=== PATIENT | male | born 1940 | race Caucasian/White ===

== ENCOUNTER 2021-09-06 20:35 | Inpatient (IN) | payer MEDICARE, OTHER ==
[~2021-09-06] VITALS: Ht 153.7 cm; Wt 79.4 kg
[2021-09-06] MEDS ORDERED: REMEDY ESSENTIAL ZINC PASTE 113 GM TOP PRN (21:15)
[2021-09-06 21:48] VITALS: BP 103/48
[2021-09-06] MEDS ORDERED: ASPI-612 PO (21:56)
[2021-09-06] MEDS ORDERED: AMLO10TA59 PO (21:56)
[2021-09-06] MEDS ORDERED: TELM80TA2 PO (21:56)
[2021-09-06] MEDS ORDERED: POTA10CA43 PO (21:56)
[2021-09-06] MEDS ORDERED: METO-358 PO (21:56)
[2021-09-06] MEDS ORDERED: RIVA10TA PO (21:56)
[2021-09-06] MEDS ORDERED: HYDR-4077 PO (21:56)
[2021-09-06] MEDS ORDERED: TRAZ-182 PO (21:56)
[2021-09-06] MEDS ORDERED: FURO20TA4 PO (21:56)
[2021-09-06] MEDS ORDERED: OXYC-133 PO (21:56)
[2021-09-06] MEDS ORDERED: hydrALAZINE HCL 25 MG TABLET PO PRN (23:15)
[2021-09-07] MEDS: TRAZODONE 50 MG TABLET PO SCH ×2 (00:02→20:17)
[2021-09-07 04:19] VITALS: BP 108/52
[2021-09-07] MEDS ORDERED: REMEDY ESSENTIAL ZINC PASTE 113 GM TOP PRN (05:29)
[2021-09-07] MEDS: POTASSIUM CHLORIDE 10 MEQ TAB.PRT.SR PO SCH (08:06)
[2021-09-07] MEDS: FUROSEMIDE 20 MG TABLET PO SCH (08:08)
[2021-09-07] MEDS: AMLODIPINE 10 MG TABLET PO SCH (08:09)
[2021-09-07] MEDS: OXYCODONE/APAP 5-325 MG TABLET PO PRN ×2 (08:09→14:49)
[2021-09-07 08:47] VITALS: BP 135/49
[2021-09-07] MEDS ORDERED: RIVAROXABAN 10 MG TABLET PO SCH (09:00)
[2021-09-07] MEDS ORDERED: ASPIRIN EC 325 MG TABLET.DR PO SCH (09:00)
[2021-09-07] MEDS ORDERED: ICOS1CAP PO (12:38)
[2021-09-07] MEDS ORDERED: ATOR20TA PO (12:39)
[2021-09-07 15:52] VITALS: BP 125/65
[2021-09-07 15:52] LABS: *BILIRUBIN,URIN NEGATIVE (NEGATIVE); *BLOOD, URINE NEGATIVE (NEGATIVE); *CLARITY,URINE CLEAR (CLEAR); *COLOR,URINE YELLOW (YELLOW); *KETONES,URINE TRACE (NEGATIVE); *UROBILINOGEN,URINE 0.2 E.U./dl (NORMAL); LEUKOCYTE ESTERASE ,URINE NEGATIVE (NEGATIVE); NITRITE, URINE NEGATIVE (NEGATIVE); UGLUCOSE NEGATIVE (NEGATIVE)
[2021-09-07 15:55] LABS: *CREATININE,URINE 121.5 mg/dL (30-125); *URINE TOTAL PROTEIN RANDOM 67.9 mg/dL (<150/24HR)
[2021-09-07] MEDS: RIVAROXABAN 10 MG TABLET PO SCH (16:29)
[2021-09-07] MEDS ORDERED: Icosapent Ethyl (Vascepa) 2 GM) PO SCH (17:00)
[2021-09-07 20:01] VITALS: BP 131/35
[2021-09-07] MEDS: ATORVASTATIN 20 MG TABLET PO SCH (20:17)
[2021-09-08] MEDS: OXYCODONE/APAP 5-325 MG TABLET PO PRN ×2 (04:05→10:10)
[2021-09-08 04:33] VITALS: BP 153/58
[2021-09-08 06:27] LABS: HEMATOCRIT 23.8 % (36.7-47.1); MEAN CORPUSCULAR HEMOGLOBIN 27.6 uug (23.8-33.4); MEAN CORPUSCULAR VOLUME 84.1 fL (73.0-96.2); PLATELET COUNT (AUTO) 286 K/uL (152-348)
[2021-09-08 07:02] LABS: ALANINE AMINOTRANSFERASE 21 U/L (16-63); ALKALINE PHOSPHATASE 67 U/L (50-136); ASPARTATE AMINOTRANSFERASE 33 U/L (15-37); BILIRUBIN,TOTAL 0.7 mg/dL (0.2-1.0); CARBON DIOXIDE 23 mmol/L (21-32); CHLORIDE 105 mmol/L (98-107); CREATINE KINASE, TOTAL 411 U/L (39-308); CREATININE 1.7 mg/dL (0.6-1.3); GLUCOSE 118 mg/dL (74-106); MAGNESIUM 2.4 mg/dL (1.8-2.4); POTASSIUM 3.8 mmol/L (3.5-5.1); TOTAL PROTEIN, SERUM 6.6 g/dL (6.4-8.2); UREA NITROGEN, BLOOD 49 mg/dL (7-18)
[2021-09-08 08:00] VITALS: BP 122/45
[2021-09-08] MEDS: POTASSIUM CHLORIDE 10 MEQ TAB.PRT.SR PO SCH (09:06)
[2021-09-08] MEDS: FUROSEMIDE 20 MG TABLET PO SCH (09:06)
[2021-09-08] MEDS: AMLODIPINE 10 MG TABLET PO SCH (09:08)
[2021-09-08] MEDS: OXYCODONE HCL 10 MG TAB.SR.12H PO SCH ×2 (13:06→20:15)
[2021-09-08 16:00] VITALS: BP 117/56
[2021-09-08] MEDS: RIVAROXABAN 10 MG TABLET PO SCH (16:40)
[2021-09-08 20:00] VITALS: BP 105/51
[2021-09-08] MEDS: ATORVASTATIN 20 MG TABLET PO SCH (20:15)
[2021-09-08] MEDS: TRAZODONE 50 MG TABLET PO SCH (20:16)
[2021-09-09] MEDS: OXYCODONE/APAP 5-325 MG TABLET PO PRN ×2 (03:06→13:47)
[2021-09-09 04:00] VITALS: BP 104/42
[2021-09-09 08:20] VITALS: BP 80/56
[2021-09-09] MEDS: FUROSEMIDE 20 MG TABLET PO SCH (08:48)
[2021-09-09] MEDS: POTASSIUM CHLORIDE 10 MEQ TAB.PRT.SR PO SCH (08:48)
[2021-09-09] MEDS: OXYCODONE HCL 10 MG TAB.SR.12H PO SCH ×2 (08:49→20:27)
[2021-09-09] MEDS: AMLODIPINE 10 MG TABLET PO SCH (08:49)
[2021-09-09 08:56] VITALS: BP 118/55
[2021-09-09 10:06] LABS: A/G RATIO 0.8 (0.7-1.7); ALBUMIN 2.6 g/dL (2.9-4.4); ALPHA-1-GLOBULIN 0.4 g/dL (0.0-0.4); BETA GLOBULIN 0.8 g/dL (0.7-1.3); GLOBULIN, TOTAL 3.2 g/dL (2.2-3.9); M-SPIKE Not Observed g/dL (Not Observed)
[2021-09-09 15:34] VITALS: BP 123/51
[2021-09-09] MEDS: RIVAROXABAN 10 MG TABLET PO SCH (16:50)
[2021-09-09 20:00] VITALS: BP 140/46
[2021-09-09] MEDS: ATORVASTATIN 20 MG TABLET PO SCH (20:27)
[2021-09-09] MEDS: TRAZODONE 50 MG TABLET PO SCH (20:27)
[2021-09-10] MEDS: OXYCODONE/APAP 5-325 MG TABLET PO PRN ×3 (00:40→18:25)
[2021-09-10 04:00] VITALS: BP 120/50
[2021-09-10 07:13] LABS: HEMATOCRIT 26.6 % (36.7-47.1); MEAN CORPUSCULAR HEMOGLOBIN 27.8 uug (23.8-33.4); MEAN CORPUSCULAR VOLUME 84.3 fL (73.0-96.2); PLATELET COUNT (AUTO) 387 K/uL (152-348)
[2021-09-10] MEDS: POTASSIUM CHLORIDE 10 MEQ TAB.PRT.SR PO SCH (08:26)
[2021-09-10] MEDS: FUROSEMIDE 20 MG TABLET PO SCH (08:26)
[2021-09-10] MEDS: OXYCODONE HCL 10 MG TAB.SR.12H PO SCH ×2 (08:27→20:27)
[2021-09-10 08:51] VITALS: BP 117/75
[2021-09-10] MEDS ORDERED: CALCIUM CARBONATE 500 MG TAB.CHEW PO PRN ×2 (12:45→13:30)
[2021-09-10] MEDS: RIVAROXABAN 10 MG TABLET PO SCH (16:43)
[2021-09-10 17:05] VITALS: BP 131/60
[2021-09-10 20:00] VITALS: BP 149/74
[2021-09-10] MEDS: DOCUSATE SODIUM 100 MG CAPSULE PO SCH (20:26)
[2021-09-10] MEDS: TRAZODONE 50 MG TABLET PO SCH (20:27)
[2021-09-10] MEDS: ATORVASTATIN 20 MG TABLET PO SCH (20:27)
[2021-09-11 04:00] VITALS: BP 121/55
[2021-09-11] MEDS: OXYCODONE/APAP 5-325 MG TABLET PO PRN ×2 (04:07→13:37)
[2021-09-11] MEDS ORDERED: PANTOPRAZOLE SODIUM 40 MG TABLET.DR PO SCH ×2 (07:00)
[2021-09-11 07:55] VITALS: BP 131/62
[2021-09-11] MEDS ORDERED: DOCUSATE SODIUM 100 MG CAPSULE PO SCH (09:00)
[2021-09-11] MEDS: DOCUSATE SODIUM 100 MG CAPSULE PO SCH (09:03)
[2021-09-11] MEDS: POTASSIUM CHLORIDE 10 MEQ TAB.PRT.SR PO SCH (09:04)
[2021-09-11] MEDS: FUROSEMIDE 20 MG TABLET PO SCH (09:04)
[2021-09-11] MEDS: OXYCODONE HCL 10 MG TAB.SR.12H PO SCH (09:04)
[2021-09-18] MEDS ORDERED: ASPIRIN EC 325 MG TABLET.DR PO SCH (09:00)
== END 2021-09-11 15:00 | disposition home health service (06) | DRG 559 ==
PROVIDERS: ADMIT Physical Medicine & Rehabilitation Pain Medicine; ATTEND Physical Medicine & Rehabilitation Pain Medicine
DX: Z47.1 Aftercare following joint replacement surgery (principal); N17.0 Acute kidney failure with tubular necrosis; M17.11 Unilateral primary osteoarthritis, right knee; D63.8 Anemia in other chronic diseases classified elsewhere; Z68.33 Body mass index [BMI] 33.0-33.9, adult; I95.9 Hypotension, unspecified; E66.9 Obesity, unspecified; I10 Essential (primary) hypertension; I25.10 Atherosclerotic heart disease of native coronary artery without angina pectoris; N40.0 Benign prostatic hyperplasia without lower urinary tract symptoms; Z95.5 Presence of coronary angioplasty implant and graft; Z96.651 Presence of right artificial knee joint; I25.2 Old myocardial infarction; E78.5 Hyperlipidemia, unspecified
CPT/HCPCS: 36415; 83735; 83970; 84100; 84155; 84156; 84165; 84300; 85025; 97161